=== PATIENT | female | born 1990 | race Caucasian/White ===

== ENCOUNTER 2019-12-02 09:47 | Observation (INO) | payer BC ==
[~2019-12-02] VITALS: Ht 172.7 cm; Wt 71.2 kg
--- NOTE | 2019-12-02 12:45 | NUR ---
PT ARRIVES VIA GURNEY SELF TRANSFERS TO BED ALERT ORIENTED AND COOPERATIVE. RATES PAIN 7/10 REFUSES PAIN MEDS UNTIL SHE IS ABLE TO PUMP BREAST MILK WENT TO GET SUPPLIES
--- NOTE | 2019-12-02 13:41 | NUR ---
PT TO O/R VIA BED
--- NOTE | 2019-12-02 15:53 | NUR ---
12/02/19 1553 Kim Brenner 1513 PT ARRIVED IN PACU SLEEPY WITH NO C/O'S. 1527 C/O NAUSEA. NEW ORDERS RECEIVED. ZOFRAN 4MG GIVEN IVP. 1529 DECADRON 4MG GIVEN IVP. 1541 NAUSEA BETTER PER PT. C/O ABD PAIN 7/10. DILAUDID 0.4MG GIVEN IVP. 1549 PAIN DOWN TO 6/10. DILAUDID 0.4MG GIVEN IVP. 1552 RESTING. WARM BLANKETS GIVEN.
--- NOTE | 2019-12-02 16:15 | NUR ---
PT RETURNS AWAKE AND COOPERATIVE FROM O/R. RATES PAIN 4/10. IN ROOMO
--- NOTE | 2019-12-02 17:00 | NUR ---
Attempted to speak with Betsy. She is sleeping and spouse is also sleeping following her surgery. Spoke with Rn and they live in town. She has 6 month old baby. Will complete assessment tomorrow.
--- NOTE | 2019-12-02 17:28 | NUR ---
PT ALERT AGREES SHE IS READY FOR SOMETHING TO EAT, SOUP AND FRUIT ORDERED PER REQUEST. PT DENIES PAIN OR NAUSEA. SCOPE SITE BLEEDING A LITTLE REINFORCED WITH GAUZE
--- NOTE | 2019-12-02 18:25 | NUR ---
PT C/O PAIN AND NAUSEA, PERCOCET AND ZOFRAN ADMINISTERED. REMAINS IN THE ROOM
--- NOTE | 2019-12-02 19:31 | NUR ---
CORNELL HARRISON IBCLC NURSE FROM [facility] CAME AND TALK TO [place] ABOUT THE SAFETY OF CONTINUING TO BREASTFEED AFTER SURGERY AND SAFETY OF ZOFRAN AND NORCO WHILE . PT STATED UNDERSTANDING
--- NOTE | 2019-12-02 19:41 | NUR ---
ROUNDED CHARGE. PATIENT IS RESTING IN BED. TRENTON RN PRESENT IN ROOM. CALL LIGHT IN REACH.
--- NOTE | 2019-12-02 20:05 | NUR ---
UP TO BR, VOIDED MEDIUM COLORED URINE. BACK TO BED, TOLERATED WELL, HAD SMALL AMOUNT OF UNDIGESTED FOOD EMESIS, RECEIVFED ZOFRAN EARLIER. DID OWN MAOUTH AND JORGE CARE, BACK TO BED. SCDS IN PLACE, IVF INFUSING W/O PROBLEMS, NO C/O PAIN. COOP WITH ASSESSMENT
--- NOTE | 2019-12-02 20:30 | NUR ---
REPORT GIVEN TO DR BORRERO VIA PHONE. NO NEW ORDERS
--- NOTE | 2019-12-02 20:32 | NUR ---
POST-OP VS DONE. VS STABLE. PATIENT RESTING IN BED. CALL LIGHT IN REACH. PATIENT DENIES ANY NEEDS.
--- NOTE | 2019-12-02 20:37 | NUR ---
Post Op VS complete and I&Os complete.
--- NOTE | 2019-12-02 21:10 | NUR ---
pt eyes closed, opens eyes easily, no c/o pain, no further c/o n/v or upset stomach. abd ss w/o changes. ivf infusing, scds in place.
--- NOTE | 2019-12-02 23:21 | NUR ---
pt had 100cc and then 300cc of undigested food emesis, got up to br, voided large amount of medium yellow urine, back to bed. had 100cc more of yellow bile smelling and looking emesis, medicated with Zofran 4mg iv and got 1 percocet per abd pain , did own mouth care. , pt discarded breast milk, new milk bottles given per pat to safeguard berast mil. ivf infusing, scds in place. abd ss lap sites w/o changes, denies burping or passing gas.
--- NOTE | 2019-12-03 00:39 | NUR ---
RESTING, EYES CLOSED, NO FURTHER C/O PAIN OR N/V. IVF INFUSING, CALL LIGHT AT BEDSIDE
--- NOTE | 2019-12-03 02:05 | NUR ---
AWAKES EASILY, DENIES C/O P ABD PAIN OR N/V. ABD LAP SITES SS AND UMBILICAL AREA WITH GAUZE INTACT. NO FURTHER SS DRAINAGE NOTED, ACTIVE BOWEL TONES, DENIES PASSING GAS OR BURPING. IVF INFUSING, SCDS IN PLACE, CALL LIGHT AND FLUIDS AT BEDSIDE
--- NOTE | 2019-12-03 04:50 | NUR ---
Up to br, voided, back to bed. tolerated well, denies c/o pain or n/v. Fresh water and call light at bedside, scds on. IVF infusing w/o problems
--- NOTE | 2019-12-03 05:08 | NUR ---
Pt awakens easily, was medicated x1 with 1 percocet per c/o abd pain. 3 abd lap sites intact, no further drainage from umbilical area. andres. Pt denies passing gas or burping at this time. Pt Has voided several times QS, had emesis x2, received Zofran x1, effective. IVF infusing w/o problems. Pt , machine in room. Fresh water and call light at bedside. Pt aware of possible dc this am.
--- NOTE | 2019-12-03 07:15 | NUR ---
REPORT RECEIVED FROM TRENTON PEREYRA. PT RESTING ON RIGHT SIDE WITH EYES CLOSED. RESPIRATIONS EVEN AND UNLABORED. PT ALLOWED TO REST. BED RAILS UP. CALL LIGHT WITHIN REACH.
--- NOTE | 2019-12-03 08:40 | NUR ---
MORNING ASSESSMENT AND MEDICATIONS DUE. PT RESTING IN BED. 100ML RECEINT GREEN EMESIS NOTED. PT REPORTS NAUSEA AND 6/10 PAIN. PT DECLINES OPIOIDS. SEE MAR FOR MEDICATION GIVEN. ASSESSMENT DONE. GAUZE TO UMBILICAL SITE SATURATED WITH OLD RED DRAINAGE, NEW GAUZE PLACED. BOWEL TONES ACTIVE. PT REPORTS NEW NUMBNESS AND TINGLING IN BILATERAL ARMS "UP TO MY ELBOWS" THAT DOES NOT RESOLVE WITH MOVEMENT AND REPOSITIONING. BREAKFAST ARRIVED, PT DECLINES RELATED TO NAUSEA. NO ADDITIOANL REQUESTS OR COMPLAINTS AT THIS TIME. CALL LIGHT WITHIN REACH.
[2019-12-03] MEDS ORDERED: IBUPROFEN200 MG PO (09:07)
--- NOTE | 2019-12-03 09:08 | NUR ---
MED REC COMPLETE
--- NOTE | 2019-12-03 09:10 | NUR ---
Spoke with Betsy. She lives in [place] with her spouse and her 6 mo old son. Plans on discharge today and spouse will take a few days off to stay with her. She does not have a PCP she would like assistance establishing care. States providers she does not want. Was able to get a new pt appt with werner Diaz on Dec 08 at 11:00. Pt denies other needs and denies concerns to go home.
--- NOTE | 2019-12-03 09:50 | NUR ---
THIS RN TO ROOM TO CHECK ON PT. PT HAS VOMITED AN ADDITIONAL 200ML, GREEN EMESIS. MD CALLED. NEW ORDERS PLACED. LABS DRAW THROUGH PIV WITH 10ML WASTE. PHENEGRAN GIVEN. TYELNOL GIVEN FOR ON GOING 04/20 PAIN. PT UP TO RESTROOM, VOIDS WITHOUT ISSUE. PT BACK TO BED. RESTING AT THIS TIME. CALL LIGHT WITHIN REACH.
--- NOTE | 2019-12-03 11:11 | NUR ---
PT VISTITING WITH FAMILY. ENSURE PROVIDED PER PT REQUEST. PT CONTINUES TO REPORT 6/10 PAIN BUT DECLINES ADDITIONAL PAIN MEDICATION. CALL LIGHT WITHIN REACH. FAMILY AT BEDSIDE.
--- NOTE | 2019-12-03 11:30 | NUR ---
NOON ASSESSMENT DUE. PT CONTINUES TO REPORT 6/10 PAIN BUT DECLINES ADDITIONAL PAIN MEDICAITON. PT DENIES NAUSEA AT THIS TIME AND REPORTS ONLY DROWSINESS. ABDOMINAL INCISIONS EDGES APROXIMATED WITH STERI STRIPS IN PLACE. MINIMAL OLD DRAINAGE NOTED. BOWEL TONES HEARD. PT CONTINUES TO TAKE SIPS OF ENSURE AND REPORTS THE NUMBNESS IN HER HANDS "IS A LITTLE BETTER." FAMILY AT BEDSIDE. NO ADDITIONAL REQUESTS OR COMPLAINTS. CALL LIGHT WITHIN REACH.
--- NOTE | 2019-12-03 12:10 | NUR ---
PT ASSISTED WITH ORDER LUNCH. PT DENIES NAUSEA AND REPORTS HUNGER AND DROWSINESS. FAMILY AT BEDSIDE. CALL LIGHT WITHIN REACH.
[2019-12-03] MEDS ORDERED: IBUPROFEN600 MG PO (12:36)
[2019-12-03] MEDS ORDERED: TYLENOL EXTRA500 MG PO (12:37)
--- NOTE | 2019-12-03 12:46 | NUR ---
PT ALERT, ORIENTED AND SUPPORTED BY HER . PT SAID SHE IS FEELING BETTER AND NAUSEA DOESN'T SEEM TO BE AN ISSUE AT THIS MOMENT. CARING FOR 6MON BABY. EXTENDED A BLESSING, WILL FOLLOW NEEDED
--- NOTE | 2019-12-03 13:40 | NUR ---
THIS RN TO ROOM TO CHECK ON PT. PT WAS ABLE TO EAT HER ENTIRE SANDWICH. PT DENIES NAUSEA AND REPORTS PAIN OF 4/10. PT DENIES NEED FOR PAIN MEDICATION AT THIS TIME. PT STATES SHE IS READY TO GO HOME. MD CALLED, NO ANSWER AT THIS TIME. WILL CONTINUE TO MONITOR.
--- NOTE | 2019-12-03 13:50 | NUR ---
RETURNED CALL. UPDATED ON PTS STATUS AND DESIRE TO GO HOME. STATES OK TO DISCHRAGE. PT UPDATED.
--- NOTE | 2019-12-03 14:25 | NUR ---
PT READY FOR DISCHARGE. VITALS TAKEN. PIV DC'D PER PROTOCOL. GAUZE AND COBAN APPLIED. DISCHARGE INSTRUCTIONS REVIEWED WITH PT. PT VERBALIZES UNDERSTANDING OF INSTRCTIONS, FOLLOW UP APPOINTMENTS, AND MEDICAITONS AND STATES HER QUESTIONS HAVE BEEN ANSWERED. MOTRIN GIVEN FOR 4/10 PAIN. PT UP TO DRESS SELF, STEADY ON FEET WITH SBA. PT TRANSFERES SELF TO WHEELCHAIR. ALL BELONGINGS RETURNED TO PT AND . PT WHEELED FROM MED/SURG. NO ADDITIONAL CONCERNS, REQUESTS OR COMPLAINTS.
--- NOTE | 2019-12-04 11:35 | PATH ---
[facility] [address] [place], [place] [address] Signed SPECIMEN(S): A APPENDIX SPECIMEN SOURCE: A. APPENDIX CLINICAL HISTORY: Acute appendicitis. FINAL PATHOLOGIC DIAGNOSIS: Appendix, appendectomy: - Acute appendicitis. NAL:caw:C2NR MICROSCOPIC EXAMINATION: Histologic sections of all submitted blocks are examined by light microscopy. These findings, together with the gross examination, support the pathologic diagnosis. GROSS DESCRIPTION: The specimen, labeled "MH, appendix," is received in formalin and consists of Specimen: Appendix with mesoappendix. Dimensions: 7.4 cm in length by 1.1 cm in diameter with a 2.3 cm yellow fatty mesoappendix. Serosa: Jenkins-brown with hyperemic subserosal vessels and a white exudate near the appendiceal margin. Perforation: Not grossly identified. Inking: Staple line is inked black. Mucosa: Jenkins and smooth. Fecalith: Not grossly identified. Additional: None. Hand Braille Transcriber sections are submitted in cassette (A1). AM (under the direct supervision of a pathologist) The Gross Description was prepared using a voice recognition system. The report was reviewed for accuracy; however, sound-alike word errors, addition and/or deletions may occur. If there is any question about this report, please contact Client Services. PERFORMING LABORATORY: The technical component was performed by [facility], [address] [place] [id number] ([employer] Java Developer: Rivka Ayala MD; CLIA# [id number]). Professional interpretation was performed by PATIENT NAME: ELSY GORMAN PATHOLOGY DATE OF : [birth year] REPORT #: [id number] PHYSICIAN: [facility] PCP: NO PRIMARY CARE PHYSICIAN REPORT IS CONFIDENTIAL AND NOT TO BE RELEASED WITHOUT AUTHORIZATION [facility] [address] [place], [place] [address] Signed [facility], [facility], [address] [facility], [facility] [address], [place] [address] (Atg Java Developer: Luis Felipe Luciano MD; CLIA# [id number]). Diagnostician: Kayy Yarbrough MD Pathologist Electronically Signed 12/04/2019 Copies: ~ PATIENT NAME: ELSY GORMAN PATHOLOGY DATE OF : [birth year] REPORT #: [id number] PHYSICIAN: [facility] PCP: NO PRIMARY CARE PHYSICIAN REPORT IS CONFIDENTIAL AND NOT TO BE RELEASED WITHOUT AUTHORIZATION
--- NOTE | 2019-12-04 18:37 | OR ---
[facility] [address] [place], [place] [address] Signed DATE OF OPERATION: 12/02/2019 SURGEON: Pauline Borrero MD PREOPERATIVE DIAGNOSES: 1. Acute appendicitis. 2. state, eight weeks. POSTOPERATIVE DIAGNOSIS: Acute nonperforated appendicitis. PROCEDURE: Laparoscopic appendectomy. ANESTHESIA: General endotracheal; Pauline Stearns CRNA and local 10 mL of 0.25% Marcaine with epinephrine. INDICATION: This 29-year-old white woman is eight weeks with her 1st child, who is alive and well. She began having pain yesterday in the central abdomen, which migrated to the right lower quadrant. She was evaluated by Dr. Padilla in the emergency room, found clinically to have appendicitis. A CT scan was obtained nevertheless, which confirmed acute appendicitis. She has been fluid resuscitated, given intravenous antibiotics, and is now to undergo appendectomy preferably by laparoscopic approach. The risks of bleeding, infection, need for open procedure, need for other indicated procedures and so forth was all reviewed and well understood. FINDINGS: The appendix was indeed inflamed. It was excised without problem. The colon appeared normal. Pelvic organs were not visualized. The gallbladder was obscured by fat and the hepatic flexure of the colon. The liver was normal. There were no problems with appendectomy. DESCRIPTION OF PROCEDURE: The patient was brought to the operating room and given a general endotracheal anesthetic. Preoperative antibiotic cefoxitin was given. Sequential compression device stockings were used. The abdomen was prepared with a chlorhexidine solution and draped sterilely. An infraumbilical incision was made and using an open Latasha cannula technique, pneumoperitoneum was achieved to level of 14 mmHg with carbon dioxide gas. Electronically Signed By: PAULINE BORRERO MD 12/04/19 1837 PATIENT NAME: ELSY GORMAN OPERATIVE REPORT DATE OF : [birth year] REPORT #: [id number] PHYSICIAN: PAULINE BORRERO MD PCP: NO PRIMARY CARE PHYSICIAN REPORT IS CONFIDENTIAL AND NOT TO BE RELEASED WITHOUT AUTHORIZATION [facility] [address] [place], [place] [address] Signed Intraabdominal inspection showed no sign of ascites or carcinomatosis. The appendix was obscured from view initially. The liver appeared normal. An epigastric 12 mm port was placed and a camera placed to that site. A single hand manipulation allowed for visualization of the appendix, which was markedly inflamed as suspected by the CT scan. The right lower quadrant 5 mm port was placed under direct visualization allowing for two-hand manipulation. The appendix was elevated. The mesoappendix demonstrated and a defect created in the mesoappendix with electrocautery between the appendix and the cecum itself. With blunt dissection, a space was created and an Endo-LASHELL stapling device was used to transect the appendix flushed with the cecum. With the elevated mesentery of the appendix, another Endo-LASHELL load was used to transect the mesoappendix completely. The appendix was placed in an endobag and extracted through the infraumbilical port site and passed for Pathology. Inspection in the right lower quadrant showed a small amount of subserosal hematoma development, but not much at all. Irrigation was undertaken. Small amounts of cautery were applied to the staple site a bit. Once hemostasis was quite clear and assured, a bit of hemostatic agent, Larisa was applied to the area. The trocars were then removed under direct visualization showing no sign of bleeding. The infraumbilical fascial incision was reapproximated with interrupted 0 Vicryl suture. All wounds were copiously irrigated with saline solution and 10 mL of 0.25% Marcaine with epinephrine injected locally. The skin was then closed with interrupted 3-0 Vicryl. Steri-Strips were applied. She was ultimately extubated and transferred to recovery room in good condition having suffered no complication. Sponge, needle, and instrument counts reported as correct x3. MD SHONNA Jameson/MODL /[id number] cc: Dr. Padilla [facility] Copies: Electronically Signed By: PAULINE BORRERO MD 12/04/19 1837 PATIENT NAME: ELSY GORMAN OPERATIVE REPORT DATE OF : [birth year] REPORT #: [id number] PHYSICIAN: PAULINE BORRERO MD PCP: NO PRIMARY CARE PHYSICIAN REPORT IS CONFIDENTIAL AND NOT TO BE RELEASED WITHOUT AUTHORIZATION [facility] [address] [facility] [place] [address] Signed ~ Electronically Signed By: PAULINE BORRERO MD 12/04/19 1837 PATIENT NAME: ELSY GORMAN OPERATIVE REPORT DATE OF : [birth year] REPORT #: [id number] PHYSICIAN: PAULINE BORRERO MD PCP: NO PRIMARY CARE PHYSICIAN REPORT IS CONFIDENTIAL AND NOT TO BE RELEASED WITHOUT AUTHORIZATION
--- NOTE | 2019-12-04 18:37 | HP ---
[facility] [address] [place], [place] [address] Signed ADMISSION DATE: 12/02/2019 REASON FOR ADMISSION: Acute appendicitis. HISTORY OF PRESENT ILLNESS: This 29-year-old white woman who was accompanied by her . She is two months' from her 1st child, a boy and now weighs nearly 20 pounds. He is healthy. In the past 24 hours, she had vague abdominal pain in the central abdomen, which migrated to the right lower abdomen. She was evaluated by Dr. Padilla in the emergency room and thought likely to have appendicitis. A CT scan was performed confirming a dilated and thickened appendix. She was admitted for further evaluation and care. Of Note: Her evaluation included a CBC showing a normal white count of 6.3 with hematocrit of 40.6, platelets of [id number] and Chem profile which was normal. Urinalysis showed specific gravity 1.002 and otherwise negative. A beta-hCG test was negative. PAST MEDICAL HISTORY: Significant primarily for her childbirth as previously noted. She does not smoke or drink alcohol. She has no known drug allergies. She takes no medications at home. SOCIAL HISTORY: She is , has now one child. She works at [employer]. REVIEW OF SYSTEMS: She denies any shortness of breath or chest pain. She has had no dysphagia, dysuria. Denies any hematemesis or blood per rectum. She has no nausea or vomiting. Her pain is dominantly in the right lower abdomen. PHYSICAL EXAMINATION: GENERAL: A healthy-appearing white woman who looks to be in no acute distress actually. HEENT: Mucous membranes were reasonably moist. Trachea is midline. CHEST: Clear. HEART: Regular. ABDOMEN: Scaphoid and flat. Rovsing sign is positive. There is tenderness in McBurney point with rebound tenderness. EXTREMITIES: Show no clubbing, cyanosis, or edema. LABORATORY STUDIES: As noted. White count normal at 6.3. I reviewed the CT scan myself and also reviewed Electronically Signed By: PAULINE BORRERO MD 12/04/19 1837 PATIENT NAME: ELSY GORMAN HISTORY AND PHYSICAL DATE OF : [birth year] REPORT #: [id number] PHYSICIAN: PAULINE BORRERO MD PCP: NO PRIMARY CARE PHYSICIAN REPORT IS CONFIDENTIAL AND NOT TO BE RELEASED WITHOUT AUTHORIZATION [facility] [address] [place], [place] [address] Signed with radiologist and Dr. Padilla. ASSESSMENT: Patient has clinical and radiographic evidence of acute appendicitis. She is two months' and still breast feeding. I discussed with the patient and her the pathophysiology of problem and recommendation of treatment to include appendectomy. Although there are antibiotic regimens that are available for acute appendicitis, I do not recommend those and she understands that. We will admit to the hospital at this time, administer additional fluids, IV antibiotics, Pepcid IV, and anticipate appendectomy preferred by laparoscopic approach today. The risks of bleeding, infection, need for open procedure, need for other indicated procedures and other unforeseen complications were reviewed in detail with the patient and her . They understand and wished to proceed. MD SHONNA Jameson/ELOYL /[id number] cc: Dr. Padilla Copies: ~ Electronically Signed By: PAULINE BORRERO MD 12/04/19 1837 PATIENT NAME: VITAELSY HISTORY AND PHYSICAL DATE OF : [birth year] REPORT #: [id number] PHYSICIAN: PAULINE BORRERO MD PCP: NO PRIMARY CARE PHYSICIAN REPORT IS CONFIDENTIAL AND NOT TO BE RELEASED WITHOUT AUTHORIZATION
== END 2019-12-03 14:35 | disposition home or self-care (01) ==
LOC: ED 09:47 → MS 09:49
PROVIDERS: ADMIT Surgery
PROC: 0DTJ4ZZ Resection of Appendix, Percutaneous Endoscopic Approach (ICD-10-PCS; principal; 2019-12-02 13:09)
DX: K35.80 Unspecified acute appendicitis (principal)
CPT/HCPCS: 00840; 74177; 80053; 81001; 84703; 85025; 94762; 96361; 96372; 96375; 96376; 99285-25; A9270; G0378; J0330; J0694; J1100; J1170; J1644; J1885; J2250; J2270; J2405; J2550; J2704; J2765; J3010; J7030; J7060; J7121

== ENCOUNTER 2021-12-15 06:10 | Inpatient (IN) | payer BC ==
[~2021-12-15] VITALS: Ht 172.7 cm; Wt 90.7 kg
[~2021-12-15 06:10] MED LIST: IBUPROFEN200 MG PO; IBUPROFEN600 MG PO; TYLENOL EXTRA500 MG PO
--- NOTE | 2021-12-15 14:27 | PR ---
[facility] [address] [place], [place] [address] Signed PP Progress Notes Datetime Report Generated by CPN: 12/15/2021 14:27 SUBJECTIVE: [id number] Pain Comments: chest pain started very quickly after starting IV iron. Nausea/Vomiting Comments: Reported pressure _ sharp pain w/ SOB Flatus Comments: Feeling shakey as well Vital Signs: [id number] Vital Signs: Reviewed; Within Normal Limits Notable Details: sugar = 58 Cardiovascular: Normal Respiratory: Normal Exam Comments: EKG normal O2 sat 98% IMPRESSION/PLAN/PROCEDURES: [id number] Other Impression: chest pain probable allergic rx to Feraheme; hypoglycemia Other Plans: stop IV Feraheme, po OJ/lunch Progress Notes: Developed chest pain both pressure into her back and sharp pain very shortly after starting IV Feraheme. Symptoms resolved within several minutes of stopping the medication. Blood sugar also noted to be 58. She did take her hs NPH last night but no insulin today. Suspect her chest pain symptoms are a rx to the Feraheme. Her shakiness is likely related to no real food today. Her insulin use last pm not a factor in this low blood sugar. Will feed her now and D/C IV Feraheme for reaction. Signing Physician: Irene Ignacio MD Copies: ~ *Electronically Signed* 12/15/21 1427 IRENE IGNACIO MD PATIENT NAME: ELSY GORMAN PROGRESS NOTE DATE OF : [birth year] PHYSICIAN: IRENE IGNACIO MD RPT #: [id number] REPORT IS CONFIDENTIAL AND NOT TO BE RELEASED WITHOUT AUTHORIZATION
--- NOTE | 2021-12-16 09:49 | PR ---
[facility] [address] [place], [place] [address] Signed PP Progress Notes Datetime Report Generated by CPN: 12/16/2021 09:49 SUBJECTIVE: [id number] Pain: Within Normal Limits Pain Comments: No further chest pain. Tolerating ambulation. Nausea/Vomiting Comments: Reported pressure _ sharp pain w/ SOB Flatus Comments: Feeling shakey as well Vital Signs: [id number] Vital Signs: Reviewed; Within Normal Limits Notable Details: sugar = 58 EXAM: Ongoing Cardiovascular: Not Done Respiratory: Not Done Abdomen/Uterus: Abnormal Lochia: Normal Vulva/Perineum: Not Done Breasts: Not Done CVA Tenderness: Not Done Extremities: Normal Incision: Not Applicable Progress: Normal Exam Comments: Fundus firm, NT @ U-2. H/H 7/23.8, WBC 10.8, plat 305k IMPRESSION/PLAN/PROCEDURES: [id number] Impression: Normal Progression Other Impression: Anemia Plan: Discharge Other Plans: stop IV Feraheme, po OJ/lunch Procedures: None Progress Notes: Doing well. She is tolerating ambulation well. Her blood sugars have all been normal. She is ready for D/C. Signing Physician: Irene Ignacio MD Copies: ~ *Electronically Signed* 12/16/21 0949 IRENE IGNACIO MD PATIENT NAME: ELSY GORMAN PROGRESS NOTE DATE OF : [birth year] PHYSICIAN: IRENE IGNACIO MD RPT #: [id number] REPORT IS CONFIDENTIAL AND NOT TO BE RELEASED WITHOUT AUTHORIZATION
--- NOTE | 2021-12-17 17:50 | EKG ---
[facility] [address] [facility] [place], [place] [address] Signed Normal sinus rhythm with sinus arrhythmia Normal ECG No previous ECGs available Confirmed by KAMILLE JARA MD ([id number]) on 12/17/2021 5:50:32 PM Electronically Signed By: KAMILLE JARA MD 12/17/21 1750 PATIENT NAME: ELSY GORMAN Electrocardiogram DATE OF : [birth year] PHYSICIAN: KAMILLE JARA MD REPORT #: [id number] REPORT IS CONFIDENTIAL AND NOT TO BE RELEASED WITHOUT AUTHORIZATION
== END 2021-12-16 15:25 | disposition home or self-care (01) | DRG 806 ==
LOC: FBC 06:10
PROVIDERS: ADMIT Obstetrics & Gynecology; ATTEND Obstetrics & Gynecology
PROC: 10E0XZZ Delivery of Products of Conception, External Approach (ICD-10-PCS; principal; 2021-12-15)
PROC: 0KQM0ZZ Repair Perineum Muscle, Open Approach (ICD-10-PCS; 2021-12-15)
PROC: 10907ZC Drainage of Amniotic Fluid, Therapeutic from Products of Conception, Via Natural or Artificial Opening (ICD-10-PCS; 2021-12-15)
PROC: 3E0P7VZ Introduction of Hormone into Female Reproductive, Via Natural or Artificial Opening (ICD-10-PCS; 2021-12-15)
PROC: 00HU33Z Insertion of Infusion Device into Spinal Canal, Percutaneous Approach (ICD-10-PCS; 2021-12-15)
PROC: 3E0R3BZ Introduction of Anesthetic Agent into Spinal Canal, Percutaneous Approach (ICD-10-PCS; 2021-12-15)
DX: O24.424 Gestational diabetes mellitus in childbirth, insulin controlled (principal); D62 Acute posthemorrhagic anemia; Z37.0 Single live birth; Z3A.38 38 weeks gestation of pregnancy; Z67.40 Type O blood, Rh positive; O70.1 Second degree perineal laceration during delivery; R07.89 Other chest pain; T45.4X5A Adverse effect of iron and its compounds, initial encounter; Z20.822 Contact with and (suspected) exposure to COVID-19; O99.02 Anemia complicating childbirth
CPT/HCPCS: 36415; 80503; 85027; 86850; 86900; 86901; 93005; 93010; A9270; C9803; J2001; J2210; J2405; J2590; J2795; J7121; Q0138; U0003